=== PATIENT | female | born 1970 | race American Indian/Alaskan Native ===

== ENCOUNTER 2017-03-19 14:47 | Emergency (ER) | payer MEDICAID ==
--- NOTE | 2017-03-19 14:58 | Emergency Department Report ---
Stated Complaint: LOW BACK PAIN/NAUSEA Time Seen by Provider: 03/19/17 14:53 - HPI History of Present Illness: PT c/o gina flank pain. PT states she was seen five days ago and dx with UTI. PT states that she has had intermittent L flank pain since she was in her 20s. PT states she has had L flank pain x 5 weeks. - ROS Review of Systems: + nausea + back pain - Exam Physical Exam: pt looks well, non toxic steady gait. MSE screening note: Focused history and physical exam performed. Due to findings the following was ordered: ua, poc preg ED Disposition for MSE Condition: Stable
[2017-03-19 15:27] LABS: Bilirubin,Urine NEG (Negative); Blood,Urine NEG (Negative); Ketones,Urine NEG (Negative); Leukocyte Esterase,Urine TR (Negative); Mucus,Urine FEW /HPF; Nitrite,Urine NEG (Negative); Protein,Urine <15 mg/dL mg/dL (Negative); Urobilinogen,Urine < 2.0 mg/dL (<2.0)
[2017-03-19] MEDS ORDERED: NACL 0.9% 1000 ML 1,000 ML IV ONE (16:15)
[2017-03-19] MEDS ORDERED: ZOFRAN IV ONE (16:15)
[2017-03-19] MEDS ORDERED: MORPHINE IV ONE (16:15)
[2017-03-19 16:23] VITALS: BP 132/79
--- NOTE | 2017-03-19 16:28 | Emergency Department Report ---
ED Abdominal Pain HPI - General Chief Complaint: Abdominal Pain Stated Complaint: LOW BACK PAIN/NAUSEA Time Seen by Provider: 03/19/17 14:53 Source: patient Mode of arrival: Ambulatory Limitations: No Limitations - History of Present Illness Initial Comments: Patient is 46 years old female with no significant past medical history she is coming with bilateral flank pain and left lower quadrant abdominal pain for the last 2 weeks patient was seen here 5 days ago for the same complaint and found to have bacterial vaginosis and UTI treated with Flagyl and Macrobid patient stated that her symptom is not better. She stated that she had chills in the evening's. Patient also stated that she has diarrhea or watery no blood. MD Complaint: abdominal pain, flank pain -: week(s) Location: LLQ, L flank, R flank Radiation: none Severity scale (0 -10): 7 Quality: stabbing Improves With: nothing Associated Symptoms: nausea, vomiting, diarrhea, fever, chills - Related Data Previous Rx's Medication Instructions Recorded Last Taken Type Nitrofurantoin Monohyd/M-Cryst 100 mg PO Q12H #14 capsule 03/14/17 03/19/17 Rx [Macrobid 100 mg Capsule] metroNIDAZOLE [Flagyl] 500 mg PO Q12HR #14 tab 03/14/17 03/19/17 Rx Allergies Allergy/AdvReac Type Severity Reaction Status Date / Time No Known Allergies Allergy Unverified 08/05/14 12:41 ED Review of Systems ROS: Stated complaint: LOW BACK PAIN/NAUSEA Other details as noted in HPI Comment: All other systems reviewed and negative Constitutional: chills. denies: fever ENT: denies: ear pain Respiratory: denies: cough, orthopnea, shortness of breath, SOB with exertion, SOB at rest Cardiovascular: denies: chest pain, palpitations Gastrointestinal: abdominal pain, nausea, vomiting, diarrhea. denies: hematemesis, melena, hematochezia Genitourinary: urgency, frequency Neurological: denies: headache ED Past Medical Hx - Past Medical History Hx Hypertension: Yes (no meds) Additional medical history: Vaginal delivery x 5 - Surgical History Additional Surgical History: Tubaligation - Social History Smoking Status: Former Smoker Substance Use Type: Alcohol - Medications Home Medications: Home Medications Medication Instructions Recorded Confirmed Last Taken Type Nitrofurantoin Monohyd/M-Cryst 100 mg PO Q12H #14 capsule 03/14/17 03/19/17 Rx [Macrobid 100 mg Capsule] metroNIDAZOLE [Flagyl] 500 mg PO Q12HR #14 tab 03/14/17 03/19/17 03/19/17 Rx ED Physical Exam - General Limitations: No Limitations General appearance: alert, in no apparent distress - Head Head exam: Present: normocephalic - Eye Eye exam: Present: normal appearance, PERRL - ENT ENT exam: Present: normal exam, normal orophraynx, mucous membranes moist - Neck Neck exam: Present: normal inspection - Respiratory Respiratory exam: Present: normal lung sounds bilaterally. Absent: wheezes, rales, rhonchi - Cardiovascular Cardiovascular Exam: Present: regular rate, normal rhythm, normal heart sounds - GI/Abdominal GI/Abdominal exam: Present: soft, tenderness (left lower quadrant), normal bowel sounds. Absent: distended, guarding, rebound, rigid, mass, bruit, pulsatile mass - Extremities Exam Extremities exam: Present: normal inspection - Back Exam Back exam: Present: CVA tenderness (L). Absent: tenderness, CVA tenderness (R) , muscle spasm, paraspinal tenderness - Neurological Exam Neurological exam: Present: alert, oriented X3, CN II-XII intact, normal gait - Skin Skin exam: Present: warm, intact ED Course Vital Signs 03/19/17 03/19/17 03/19/17 14:52 16:19 16:22 Temperature 98.2 F 98.7 F Pulse Rate 98 H 92 H Respiratory 22 18 18 Rate Blood Pressure 141/89 Blood Pressure 132/79 [Left] O2 Sat by Pulse 98 100 100 Oximetry 03/19/17 16:32 Temperature Pulse Rate Respiratory 18 Rate Blood Pressure Blood Pressure [Left] O2 Sat by Pulse Oximetry - Reevaluation(s) Reevaluation #1: 03/19/17 19:29 Patient stated that she is feeling much better she's very thankful to the service provided to her. ED Medical Decision Making - Lab Data Result diagrams: 03/19/17 16:22 03/19/17 16:22 - Radiology Data Radiology results: report reviewed CT abdomen and pelvis unremarkable for acute findings Critical care attestation.: If time is entered above; I have spent that time in minutes in the direct care of this critically ill patient, excluding procedure time. ED Disposition Clinical Impression: Abdominal pain Disposition: DC-01 TO HOME OR SELFCARE Is pt being admited?: No Condition: Stable Instructions: Abdominal Pain (ED) Referrals: PRIMARY CARE,MD [Primary Care Provider] - 3-5 Days Forms: Work/School Release Form(ED)
[2017-03-19] MEDS ORDERED: MORPHINE ONE (16:30)
[2017-03-19 16:41] LABS: Basophils % (Auto) 0.6 % (0.0-1.8); Eosinophils % (Auto) 1.4 % (0.0-4.3); Hematocrit 39.5 % (30.3-42.9); Hemoglobin 13.8 gm/dl (10.1-14.3); Mean Corpuscular HGB Conc 35 % (30-34); Mean Corpuscular Hemoglobin 31 pg (28-32); Mean Corpuscular Volume 89 fl (79-97); Platelet Count 189 K/mm3 (140-440); Red Blood Count 4.46 M/mm3 (3.65-5.03); Red Cell Distribution Width 14.6 % (13.2-15.2); White Blood Count 12.4 K/mm3 (4.5-11.0)
[2017-03-19 16:55] LABS: Alanine Aminotransferase 11 units/L (7-56); Albumin 4.3 g/dL (3.9-5); Albumin/Globulin Ratio 1.8 %; Alkaline Phosphatase 48 units/L (35-129); Anion Gap 15 mmol/L; BUN/Creatinine Ratio 23; Blood Urea Nitrogen 9 mg/dL (7-17); Calcium 8.9 mg/dL (8.4-10.2); Carbon Dioxide 27 mmol/L (22-30); Chloride 102.3 mmol/L (98-107); Glucose 110 mg/dL (65-100); Lipase 31 units/L (13-60); Sodium 140 mmol/L (137-145); Total Protein 6.7 g/dL (6.3-8.2)
[2017-03-19 17:07] LABS: Bilirubin,Direct < 0.2 mg/dL (0-0.2)
[2017-03-19] MEDS ORDERED: NACL ONE (17:47)
--- NOTE | 2017-03-19 19:07 | Cat Scan Report ---
FINAL REPORT EXAM: CT ABDOMEN PELVIS W CON HISTORY: Abdominal Pain TECHNIQUE: CT of the abdomen and pelvis was performed after the administration of intravenous contrast. Subsequently, CT of the abdomen and pelvis was performed in the delayed phase. Reconstructions were included in the coronal and sagittal planes. PRIORS: None. FINDINGS: Lower thorax: The lung bases are clear. The visualized portions of the heart are normal. Liver: The liver is normal in attenuation. No intrahepatic biliary duct dilation. No focal hepatic lesions. Gallbladder/ biliary system: No cholelithiasis. The common bile duct appears nondilated. Spleen: No splenic lesions are seen. Pancreas: No pancreatic lesions are seen. No pancreatic duct dilation. Kidneys: No renal masses, cysts or hydronephrosis. No ureteral filling defects. Adrenal glands: No adrenal masses. Vasculature: The abdominal and pelvic vasculature is patent without variant anatomy. Lymph nodes: No enlarged lymph nodes are seen in the abdomen or pelvis. Bowel, mesentery, peritoneum: No bowel obstruction. No free fluid or free air. The appendix is normal. No colonic diverticulosis. No bowel wall thickening. Urinary bladder: No filling defects are seen. Pelvis: There is a small amount of free fluid in the pelvis which is likely physiologic. Several dominant follicles are seen within the ovaries. The uterus appears unremarkable. Abdominal wall: No abdominal wall hernia or other subcutaneous findings. Bones: No acute or chronic osseous finding. IMPRESSION: No acute intra-abdominal or intra-pelvic process.
== END 2017-03-19 19:47 | disposition home or self-care (01) ==
LOC: ED 14:47
DX: R10.32 Left lower quadrant pain (principal); I10 Essential (primary) hypertension; Z98.51 Tubal ligation status; Z87.891 Personal history of nicotine dependence
CPT/HCPCS: 36415; 74177; 80048; 80074; 81001; 81025; 83690; 85025; 96361; 96374; 96375; 99284; J2270; J2405; J7030; Q9967

== ENCOUNTER 2018-08-20 08:26 | Emergency (ER) | payer MEDICAID ==
[2018-08-20 08:31] VITALS: BP 185/109
== END 2018-08-20 15:44 ==
LOC: ED 08:26
DX: M54.2 Cervicalgia (principal); Z53.21 Procedure and treatment not carried out due to patient leaving prior to being seen by health care provider